=== PATIENT | male | born 1965 | race Caucasian/White ===

== ENCOUNTER → 2016-10-23 | Outpatient (CLI) | payer OTHER ==
[~2016-10-23] MED LIST: AMOX875T PO; NAPR1TAB9 PO
[2016-10-23 13:00] LABS: HEMATOCRIT 41.9 % (42-52); MEAN CELL VOLUME 91.5 fL (80-100); MEAN CORPUSCULAR HEMOGLOBIN 32.1 pg (25-34); MEAN CORPUSCULAR HGB CONC 35.1 g/dl (32-36); PLATELET COUNT 196 K/uL (130-400); RED BLOOD COUNT 4.58 M/uL (4.7-6.1); WHITE BLOOD COUNT 7.06 K/uL (4.8-10.8)
[2016-10-23 13:25] LABS: ALT/SGPT 25 U/L (12-78); BLOOD UREA NITROGEN 17 mg/dl (7-18); BUN/CREATININE RATIO 18.4 (10-20); CALCIUM 8.8 mg/dl (8.5-10.1); CARBON DIOXIDE 28 mmol/L (21-32); CHLORIDE 107 mmol/L (98-107); CHOLESTEROL 177 mg/dl (0-200); CREATININE 0.93 mg/dl (0.60-1.40); GLUCOSE 81 mg/dl (70-99); POTASSIUM 4.1 mmol/L (3.5-5.1); SODIUM 144 mmol/L (136-145)
[2016-10-23 13:28] LABS: ALB/GLOB RATIO 1.2 (0.9-2); ALKALINE PHOSPHATASE 67 U/L (45-117); AST/SGOT 52 U/L (15-37); CHOLESTEROL/HDL RATIO 2.7; HDL CHOLESTEROL 65 mg/dl; LDL CHOLESTEROL CALCULATED 101 mg/dl; TRIGLYCERIDES 55 mg/dl (0-150); VERY LOW DENSITY LIPOPROT CALC 11 mg/dl
== END | disposition home or self-care (01) ==
LOC: C.LABBC 12:19
PROVIDERS: ATTEND Internal Medicine
DX: Z00.00 Encounter for general adult medical examination without abnormal findings (principal); Z13.1 Encounter for screening for diabetes mellitus; Z13.220 Encounter for screening for lipoid disorders

== ENCOUNTER 2017-01-22 20:53 | Emergency (ER) | payer OTHER ==
[~2017-01-22] VITALS: Ht 185.4 cm; Wt 92.3 kg
[~2017-01-22 20:53] MED LIST changes: -AMOX875T PO
[2017-01-22 20:55] VITALS: BP 126/87; PULSE 67; TEMP 36.5; O2SAT 98; Ht 185.4 cm; Wt 92.3 kg
[2017-01-22] MEDS ORDERED: AMOX875T PO (21:08)
[2017-01-22] MEDS ORDERED: AMOXICIL/CLAVU 875MG HOME PACK PO ONE (21:15)
--- NOTE | 2017-01-22 22:11 | EMERGENCY ROOM VISIT NOTE ---
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 He was attempting to place the cat in a carrier when this injury occurred. He reports that the cat is up-to-date on its immunizations. The patient's tetanus immunization is up-to-date. He is here requesting antibiotics. The patient is [id number]. He has undergone the occupational preexposure rabies immunization series. He denies any significant pain. Review of Systems 10 system review was performed and was negative except for pertinent positives and negatives as indicated in history of present illness Past Medical/Surgical History Medical Problems: (1) Unilat Inguinal Hernia Surgical Problems: (1) History of Achilles tendon repair (2) History of inguinal hernia repair Family History No significant family history Social History Smoking Status: Never Smoker Alcohol Use: occasionally Drug Use: none Marital Status: Housing Status: lives with family Occupation Status: employed Current/Historical Medications Scheduled Amoxicillin & Pot Clavulanate (Augmentin 875-125 mg), 1 TAB PO BID Scheduled PRN Naproxen (Aleve), 220-440 MG PO for Pain Allergies Coded Allergies: No Known Allergies (Verified , NONE, 01/18/13) Physical Exam Vital Signs Date Time Temp Pulse Resp B/P Pulse Ox O2 Delivery O2 Flow Rate FiO2 01/22/17 20:55 36.5 67 18 126/87 98 Room Air Pain Rating (0-10): 0.5 Physical Exam CONSTITUTIONAL: Healthy and well nourished. Alert and oriented X 3 with positive affect. HEENT: Normocephalic, atraumatic. Pupils equal, round and reactive. NECK: Full active range of motion without discomfort. MUSCULOSKELETAL: Examination shows multiple scratches and a few deep punctures over the volar aspect of the left forearm. The patient is able to flex and extend the fingers and wrist without discomfort. Capillary refill is less than 2 seconds. INTEGUMENTARY: No rash or other significant dermatologic conditions noted. NEUROLOGIC: No focal neurologic deficits noted. Left hand and fingers are sensory intact. Medical Decision & Procedures Medications Administered Medications (Trade) Dose Ordered Sig/Steffanie Route Start Time Stop Time Status Last Admin Dose Admin Amoxicillin/ Clavulanate Potassium (Augmentin 875MG Home Pack) 1 homepack UD ONCE PO 01/22/17 21:15 01/22/17 21:16 DC 01/22/17 21:14 1 HOMEPACK ED Course Patient history and physical exam were performed. Nurse's notes were reviewed. Vital signs were reviewed. The patient was provided a home pack and prescription for Augmentin. He refused any dressings on the forearm. He was instructed to keep the wounds clean and covered with an antibiotic ointment and dressing until healed. Ibuprofen or Tylenol as needed for pain. Watch for any signs of developing infection, and return to the emergency department as needed. The patient was happy with plan of care, voice understanding of all discharge instructions, and denied any significant pain at the conclusion of my exam. Impression Primary Impression: Cat bite of left forearm Departure Information Dispostion Home / Self-Care Condition GOOD Prescriptions Amoxicillin & Pot Clavulanate (Augmentin 875-125 mg) 1 Tab Tab 1 TAB PO BID for 4 Days, #8 TAB Prov: Hosea Nunez PA 01/22/17 Forms HOME CARE DOCUMENTATION FORM, IMPORTANT VISIT INFORMATION Patient Instructions My [facility] Additional Instructions Complete all Augmentin antibiotics as prescribed. Keep wounds clean and covered with an antibody ointment and dressing until they heal. Return to the emergency department for any signs of developing infection. Ibuprofen or Tylenol as needed for pain. Problem Qualifiers Primary Impression: Cat bite of left forearm Encounter type: initial encounter Qualified Codes: S51.852A - Open bite of left forearm, initial encounter; W55.01XA - Bitten by cat, initial encounter
== END 2017-01-22 21:23 | disposition home or self-care (01) ==
LOC: C.EDB 20:53 → C.EDD 21:23
DX: S51.852A Open bite of left forearm, initial encounter (principal); W55.01XA Bitten by cat, initial encounter